=== PATIENT | male | born 1985 | race Caucasian/White ===

== ENCOUNTER 2017-06-25 14:56 | Emergency (ER) | payer OTHER ==
[2017-06-25] MEDS ORDERED: BUTALB/ACETAMINOPHEN/CAFFEINE 1 TAB EACH PO ONE (15:51)
--- NOTE | 2017-06-25 15:52 | ER Document Report ---
ED Medical Screen (RME) - General Chief Complaint: Headache Stated Complaint: HEADACHE Time Seen by Provider: 06/25/17 15:51 Notes: Patient has severe frontal headache behind his eyes. He states it was so bad this morning he can hardly get out of bed. He states it is been this way for approximately 3 days. He states he does not have a history of headaches. No trauma or fevers. No cough cold or congestion. He also states he has been feeling short of breath. He also states he has had some nosebleeds on and off for the last 3 days. TRAVEL OUTSIDE OF THE [place] IN LAST 30 DAYS: No - Related Data Allergies/Adverse Reactions: No Known Allergies Allergy (Unverified 06/25/17 15:03) Home Medications: Current Home Medications No Home Medications 06/25/17 [History] Past Medical History - Social History Chew tobacco use (# tins/day): No Frequency of alcohol use: None Drug Abuse: None - Past Medical History Cardiac Medical History: Reports: Hx Hypertension Renal/ Medical History: Denies: Hx Peritoneal Dialysis Psychiatric Medical History: Reports: Hx Anxiety Surgical Hx: Negative - Immunizations Hx Diphtheria, Pertussis, Tetanus Vaccination: Yes Physical Exam - Vital signs Vitals: Temp Pulse Resp BP Pulse Ox 99.1 F 80 18 126/73 H 96 06/25/17 15:02 06/25/17 15:02 06/25/17 15:02 06/25/17 15:02 06/25/17 15:02 Course - Vital Signs Vital signs: Temp Pulse Resp BP Pulse Ox 99.1 F 80 18 126/73 H 96 06/25/17 15:02 06/25/17 15:02 06/25/17 15:02 06/25/17 15:02 06/25/17 15:02
[2017-06-25 16:23] LABS: HEMATOCRIT 43.8 % (37.9-51.0); HEMOGLOBIN 15.3 g/dL (13.5-17.0); HGB HCT DIFFERENCE 2.1; MEAN CORPUSCULAR HEMOGLOBIN 29.9 pg (27.0-33.4); MEAN CORPUSCULAR HGB CONC 34.8 g/dL (32.0-36.0); MEAN CORPUSCULAR VOLUME 86 fl (80-97); RED CELL DISTRIBUTION WIDTH 13.2 % (11.5-14.0); WHITE BLOOD COUNT 5.1 10^3/uL (4.0-10.5)
--- NOTE | 2017-06-25 16:28 | RADIOLOGY REPORT (SQ) ---
EXAM DESCRIPTION: CT HEAD WITHOUT COMPLETED DATE/TIME: 06/25/2017 4:18 pm REASON FOR STUDY: penn COMPARISON: April 2015 TECHNIQUE: Axial images acquired through the brain without intravenous contrast. Images reviewed wi th bone, brain and subdural windows. Images stored on PACS. All CT scanners at this facility use dose modulation, iterative reconstruction, and/or weight based d osing when appropriate to reduce radiation dose to as low as reasonably achievable (ALARA). [facility]: Dose Right [facility]: CareDose [facility]: Dose Right [facility]: Teradose 4D [facility]: Smart [employer] RADIATION DOSE: Up-to-date CT equipment and radiation dose reduction techniques were employed. CTDIv ol: 64.6 mGy. DLP: 1163 mGy-cm. mGy. LIMITATIONS: None. FINDINGS: VENTRICLES: Normal size and contour. CEREBRUM: No masses. No hemorrhage. No midline shift. No evidence for acute infarction. Normal gra y/white matter differentiation. No areas of low density in the white matter. CEREBELLUM: No masses. No hemorrhage. No alteration of density. No evidence for acute infarction. EXTRAAXIAL SPACES: No fluid collections. No masses. ORBITS AND GLOBE: No intra- or extraconal masses. Normal contour of globe without masses. CALVARIUM: No fracture. PARANASAL SINUSES: No fluid or mucosal thickening. SOFT TISSUES: No mass or hematoma. OTHER: No other significant finding. IMPRESSION: NORMAL BRAIN CT WITHOUT CONTRAST. EVIDENCE OF ACUTE STROKE: NO. COMMENT: Quality ID # 436: Final reports with documentation of one or more dose reduction techniques (e.g., Automated exposure control, adjustment of the mA and/or kV according to patient size, use of iterative reconstruction technique) TECHNICAL DOCUMENTATION: JOB ID: [id number] [employer]- All Rights Reserved
[2017-06-25 16:43] LABS: ALANINE AMINOTRANSFERASE 65 U/L (21-72); ALBUMIN 4.7 g/dL (3.5-5.0); ALKALINE PHOSPHATASE 61 U/L (38-126); ANION GAP 12 (5-19); ASPARTATE AMINO TRANSFERASE 37 U/L (17-59); BILIRUBIN,DIRECT 0.3 mg/dL (0.0-0.4); BILIRUBIN,TOTAL 0.6 mg/dL (0.2-1.3); BLOOD UREA NITROGEN 13 mg/dL (7-20); CALCIUM 9.3 mg/dL (8.4-10.2); CARBON DIOXIDE 30 mmol/L (22-30); CHLORIDE 100 mmol/L (98-107); CREATININE RESULT 1.01 mg/dL (0.52-1.25); GLUCOSE 70 mg/dL (75-110); POTASSIUM 4.4 mmol/L (3.6-5.0); TOTAL PROTEIN 7.5 g/dL (6.3-8.2)
--- NOTE | 2017-06-25 17:41 | ER Document Report ---
ED General - General Chief Complaint: Headache Stated Complaint: HEADACHE Time Seen by Provider: 06/25/17 15:51 Mode of Arrival: Ambulatory Information source: Patient TRAVEL OUTSIDE OF THE [place] IN LAST 30 DAYS: No - Related Data Allergies/Adverse Reactions: No Known Allergies Allergy (Unverified 06/25/17 15:03) Home Medications: Current Home Medications No Home Medications 06/25/17 [History] Past Medical History - Social History Smoking Status: Never Smoker Chew tobacco use (# tins/day): No Frequency of alcohol use: None Drug Abuse: None Family History: Reviewed & Not Pertinent Patient has suicidal ideation: No Patient has homicidal ideation: No - Past Medical History Cardiac Medical History: Reports: Hx Hypertension Renal/ Medical History: Denies: Hx Peritoneal Dialysis Psychiatric Medical History: Reports: Hx Anxiety Surgical Hx: Negative - Immunizations Hx Diphtheria, Pertussis, Tetanus Vaccination: Yes Physical Exam - Vital signs Vitals: Temp Pulse Resp BP Pulse Ox 99.1 F 80 18 126/73 H 96 06/25/17 15:02 06/25/17 15:02 06/25/17 15:02 06/25/17 15:02 06/25/17 15:02 Course - Vital Signs Vital signs: Temp Pulse Resp BP Pulse Ox 99.1 F 80 18 126/73 H 96 06/25/17 15:02 06/25/17 15:02 06/25/17 15:02 06/25/17 15:02 06/25/17 15:02 - Laboratory Result Diagrams: 06/25/17 16:11 06/25/17 16:11 Laboratory results interpreted by me: 06/25/17 06/25/17 16:11 16:11 Plt Count 149 L Glucose 70 L
[2017-06-25] MEDS ORDERED: NORMAL SALINE 1000 ML 1,000 ML IV ONE (17:52)
[2017-06-25] MEDS ORDERED: DIPHENHYDRAMINE HCL 50 MG/ML VIAL IV ONE ×2 (17:52→18:29)
[2017-06-25] MEDS ORDERED: KETOROLAC TROMETHAMINE INJ/PF 30 MG/1 ML SDV IV ONE (17:52)
[2017-06-25] MEDS ORDERED: PROCHLORPERAZINE EDISYLATE INJ 10 MG/2 ML VIAL IV ONE (17:52)
--- NOTE | 2017-06-25 17:52 | ER Document Report ---
ED Headache - General Chief Complaint: Headache Stated Complaint: HEADACHE Time Seen by Provider: 06/25/17 15:51 Mode of Arrival: Ambulatory Information source: Patient Notes: 31 yo smoker, rare etoh, rare marijuana normally healthy male with sudden onset of shakes, not being able to stay warm, myalgia, arthralgia, sharp frontal CALERO betwwen eyes and top or head, headache 4/5, had to lay down, couldn't help in the kitchen saturday night. Nightmares, no sleep, felt feverish, chills and sweats. Saturday and Saturday with head pressure, nausea, sensitivity to light, nosebleed on saturday, diarrhea on saturday, no vomiting. Worse bending forward, the fioricet from [facility] helped some. No hx. migraines. Dx Seizure activity in 2007 - [facility]. no sore throat, no cough, tight chest pain while in the ER lasted a few seconds., has SOB with extertion this , no abd pain, pain in base of neck "aggrevated since saturday". TRAVEL OUTSIDE OF THE [place] IN LAST 30 DAYS: No - Related Data Allergies/Adverse Reactions: No Known Allergies Allergy (Unverified 06/25/17 15:03) Home Medications: Current Home Medications No Home Medications 06/25/17 [History] Past Medical History - General Information source: Patient - Social History Smoking Status: Current Every Day Smoker Chew tobacco use (# tins/day): No Frequency of alcohol use: None Drug Abuse: None Lives with: Spouse/Significant other Family History: Reviewed & Not Pertinent Patient has suicidal ideation: No Patient has homicidal ideation: No - Past Medical History Cardiac Medical History: Reports: Hx Hypertension Renal/ Medical History: Denies: Hx Peritoneal Dialysis Psychiatric Medical History: Reports: Hx Anxiety Surgical Hx: Negative - Immunizations Hx Diphtheria, Pertussis, Tetanus Vaccination: Yes Review of Systems - Review of Systems Constitutional: See HPI EENT: No symptoms reported Cardiovascular: No symptoms reported Respiratory: No symptoms reported Gastrointestinal: No symptoms reported Genitourinary: No symptoms reported Male Genitourinary: No symptoms reported Musculoskeletal: No symptoms reported Skin: No symptoms reported Hematologic/Lymphatic: No symptoms reported Neurological/Psychological: See HPI Physical Exam - Vital signs Vitals: Temp Pulse Resp BP Pulse Ox 99.1 F 80 18 126/73 H 96 06/25/17 15:02 06/25/17 15:02 06/25/17 15:02 06/25/17 15:02 06/25/17 15:02 Interpretation: Normal - General General appearance: Appears well, Alert In distress: None - HEENT Head: Normocephalic, Atraumatic Eyes: Normal Conjunctiva: Normal Extraocular movements intact: Yes Pupils: PERRL Mucous membranes: Normal Pharynx: Erythema Neck: Supple. No: Lymphadenopathy, Meningismus - Respiratory Respiratory status: No respiratory distress Chest status: Nontender Breath sounds: Normal Chest palpation: Normal - Cardiovascular Rhythm: Regular Heart sounds: Normal auscultation Murmur: No - Abdominal Inspection: Normal Distension: No distension Bowel sounds: Normal Tenderness: Nontender Organomegaly: No organomegaly - Back Back: Normal, Nontender. No: CVA tenderness - Extremities General upper extremity: Normal inspection, Nontender, Normal color, Normal ROM , Normal temperature General lower extremity: Normal inspection, Nontender, Normal color, Normal ROM , Normal temperature, Normal weight bearing. No: Jonathan's sign - Neurological Neuro grossly intact: Yes Cognition: Normal Orientation: AAOx4 Laureen Coma Scale Eye Opening: Spontaneous Laureen Coma Scale Verbal: Oriented [place] Coma Scale Motor: Obeys Commands [place] Coma Scale Total: 15 Speech: Normal Motor strength normal: LUE, RUE, LLE, RLE Sensory: Normal - Psychological Associated symptoms: Normal affect, Normal mood - Skin Skin Temperature: Warm Skin Moisture: Dry Skin Color: Normal Skin irregularity: negative: Rash Course - Re-evaluation Re-evalutation: 06/25/17 17:[address] scan are negative. 06/25/17 18:30 Patient's headache is 2/5 but he feels jerky which is most likely from the Compazine and I will give him another 25 mg of Benadryl. 06/25/17 18:46 Patient is asleep the second by of fluid is hanging and I expect him to be discharged with headache and viral syndrome diagnosis. And follow-up with a neurologist. 06/25/17 18:55 Headache is 1/5 he feels like he can go home he drank something and ate some crackers. - Vital Signs Vital signs: Temp Pulse Resp BP Pulse Ox 98.2 F 65 18 112/56 L 96 06/25/17 18:46 06/25/17 18:46 06/25/17 18:46 06/25/17 18:46 06/25/17 18:46 - Laboratory Result Diagrams: 06/25/17 16:11 06/25/17 16:11 Laboratory results interpreted by me: 06/25/17 06/25/17 16:11 16:11 Plt Count 149 L Glucose 70 L Discharge - Discharge Clinical Impression: Viral syndrome Headache Qualifiers: Headache type: unspecified Headache chronicity pattern: acute headache Intractability: not intractable Qualified Code(s): R51 - Headache Condition: Good Disposition: HOME, SELF-CARE Instructions: Intravenous Compazine for Headaches ([facility]), Use of Diphenhydramine , Headache ([facility]), Toradol Injection ([facility]), Viral Syndrome ([facility]) Additional Instructions: see the neurologist for headaches to er if worse Please complete the patient satisfaction survey if you get one, and return it.. If you do not receive a survey, then you can go to the [facility] website, [email or web address] and place your comments about your very good care. Thank you very much. It was a pleasure being your medical provider today. Forms: Return to Work Referrals: IDANIA GASTON MD [ACTIVE STAFF] - Follow up as needed
[2017-06-25 19:32] VITALS: BP 120/61
== END 2017-06-25 19:32 | disposition home or self-care (01) ==
LOC: ER 14:56
DX: R51 Headache (principal); B34.9 Viral infection, unspecified; M79.1 Myalgia; M25.50 Pain in unspecified joint; F17.200 Nicotine dependence, unspecified, uncomplicated; I10 Essential (primary) hypertension
CPT/HCPCS: 99284; 96361; 96374; 96375; 36415; 85027; 80053; 70450; J3490; J1200; J1885; J0780; J7030

== ENCOUNTER 2018-09-08 09:38 | Emergency (ER) | payer OTHER ==
[2018-09-08] MEDS ORDERED: MORPHINE SULFATE 10 MG/ML INJ IM ONE (10:05)
[2018-09-08] MEDS ORDERED: DIPHENHYDRAMINE HCL 50 MG/ML VIAL IM ONE (10:05)
[2018-09-08] MEDS ORDERED: ONDANSETRON HCL INJ/PF 4 MG/2 ML SDV IM ONE (10:08)
--- NOTE | 2018-09-08 10:08 | ER Document Report ---
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 He will was turning his head and stepping off and struck the right medial canthus aspect of his eye against the corner of a box. He is complaining of severe pain and unable to open his eye. He is keeping his eye closed tightly and it is waterin g. The eyelids were lifted up and he looks up and to the right to avoid contact with light, though there is some scleral conjunctival injection. The patient is so uncomfortable that an examination not really possible. He will be given some pain medication and moved to the main ED. TRAVEL OUTSIDE OF THE [place] IN LAST 30 DAYS: No - Related Data Allergies/Adverse Reactions: No Known Allergies Allergy (Verified 09/08/18 09:45) Past Medical History - Past Medical History Cardiac Medical History: Reports: Hx Hypertension Renal/ Medical History: Denies: Hx Peritoneal Dialysis Psychiatric Medical History: Reports: Hx Anxiety - Immunizations Hx Diphtheria, Pertussis, Tetanus Vaccination: Yes Physical Exam - Vital signs Vitals: Temp Pulse Resp BP Pulse Ox 98.3 F 75 20 126/87 H 95 09/08/18 09:43 09/08/18 09:43 09/08/18 09:43 09/08/18 09:43 09/08/18 09:43 Course - Vital Signs Vital signs: Temp Pulse Resp BP Pulse Ox 98.3 F 75 20 126/87 H 95 09/08/18 09:43 09/08/18 09:43 09/08/18 09:43 09/08/18 09:43 09/08/18 09:43
[2018-09-08] MEDS ORDERED: ONDANSETRON 4 MG TAB.RAPDIS PO ONE (10:10)
[2018-09-08] MEDS ORDERED: TETRACAINE HCL 0.5% OPH SOLN 4 ML ONE (11:34)
[2018-09-08] MEDS ORDERED: HYDROMORPHONE HCL INJ/PF 2 MG/ML AMPULE IV ONE ×2 (12:08→13:36)
--- NOTE | 2018-09-08 12:12 | ER Document Report ---
ED Eye Complaint - General Chief Complaint: Eye Injury Stated Complaint: EYE INJURY Time Seen by Provider: 09/08/18 10:01 Primary Care Provider: DAVION PRIETO MD [ACTIVE STAFF] - Follow up as needed [facility] [[facility]] - Follow up as needed TRAVEL OUTSIDE OF THE [place] IN LAST 30 DAYS: No - HPI Patient complains to provider of: Right eye injury Onset: Just prior to arrival Eye location: Right Injury: Yes Occurred at: Work Quality of pain: Achy, Pressure, Stabbing Severity: Severe Pain Level: 5 Notes: Patient is a 32-year-old male presenting to the emergency department complaining of injury to his right eye that occurred just prior to arrival, patient works at [employer], he was walking out of the cooler and impacted the corner of a cardboard box that his right medial canthus, since then he complains of pain at the back of his eye, which is severe in nature, inability to open the eye, and increased hearing, he denies pain or injury elsewhere - Related Data Allergies/Adverse Reactions: No Known Allergies Allergy (Verified 09/08/18 09:45) Past Medical History - General Information source: Patient - Social History Smoking Status: Current Every Day Smoker Chew tobacco use (# tins/day): No Frequency of alcohol use: None Drug Abuse: None Family History: Reviewed & Not Pertinent Patient has suicidal ideation: No Patient has homicidal ideation: No - Past Medical History Cardiac Medical History: Reports: Hx Hypertension Renal/ Medical History: Denies: Hx Peritoneal Dialysis Psychiatric Medical History: Reports: Hx Anxiety - Immunizations Hx Diphtheria, Pertussis, Tetanus Vaccination: Yes Review of Systems - Review of Systems Constitutional: No symptoms reported EENT: See HPI, Eye pain Cardiovascular: No symptoms reported Respiratory: No symptoms reported Gastrointestinal: No symptoms reported Genitourinary: No symptoms reported Male Genitourinary: No symptoms reported Musculoskeletal: No symptoms reported Skin: No symptoms reported Hematologic/Lymphatic: No symptoms reported Neurological/Psychological: No symptoms reported -: Yes All other systems reviewed and negative Physical Exam - Vital signs Vitals: Temp Pulse Resp BP Pulse Ox 98.3 F 75 20 126/87 H 95 09/08/18 09:43 09/08/18 09:43 09/08/18 09:43 09/08/18 09:43 09/08/18 09:43 - Notes Notes: - General General appearance: Appears well, Alert In distress: None - HEENT Head: Normocephalic, Atraumatic - Respiratory Respiratory status: No respiratory distress - Cardiovascular Rhythm: Regular - Abdominal Inspection: Normal - Back Back: Normal - Extremities General upper extremity: Normal inspection General lower extremity: Normal inspection - Neurological Neuro grossly intact: Yes Orientation: AAOx4 Laureen Coma Scale Eye Opening: Spontaneous Laureen Coma Scale Verbal: Oriented [place] Coma Scale Motor: Obeys Commands [place] Coma Scale Total: 15 - Psychological Associated symptoms: Normal affect, Normal mood - Skin Skin Temperature: Warm Skin Moisture: Dry Skin Color: Normal - HEENT Conjunctiva: Injected, Other - Increased tearing from right eye Cornea: Corneal abrasion, Flourescein stain uptake Extraocular movements intact: Yes Eyelashes: Normal Pupils: PERRL Course - Re-evaluation Re-evalutation: 09/08/18 18:45 Imaging findings unremarkable, no evidence of globe rupture or hematoma, physical exam findings with floor seen consistent with large corneal abrasion, patient provided with prescriptions for pain control and ophthalmic antibiotics, advised to follow-up with manager specialty or return if symptoms worsen, patient acknowledges understanding and agreement with this plan - Vital Signs Vital signs: Temp Pulse Resp BP Pulse Ox 99.0 F 52 L 16 118/68 98 09/08/18 13:53 09/08/18 13:53 09/08/18 13:53 09/08/18 13:53 09/08/18 13:53 - Diagnostic Test Radiology reviewed: Image reviewed, Reports reviewed Procedures - Eye Procedure Right Time completed: 12:00 Alcaine Drops Administered: Yes Fluorescein applied: Right Eyes picture: 1 - Fluorescein stain uptake Discharge - Discharge Clinical Impression: Corneal abrasion Condition: Stable Disposition: HOME, SELF-CARE Instructions: Corneal Abrasion ([facility]) Additional Instructions: Follow up with your primary care provider and an manager specialty in 2-3 days. Return to the ER immediately if symptoms worsen or any additional concerns. Prescriptions: Ofloxacin [Ocuflox] 2 drop OP 5XD #1 bottle Oxycodone HCl/Acetaminophen [Percocet 5-325 mg Tablet] 1 - 2 tab PO ASDIR PRN #14 tablet PRN Reason: Forms: Return to Work Referrals: [facility] [Primary Care [facility]] - Follow up as needed DAVION PRIETO MD [ACTIVE STAFF] - Follow up as needed
--- NOTE | 2018-09-08 13:02 | RADIOLOGY REPORT (SQ) ---
EXAM DESCRIPTION: CT ORBIT/SELLA WITHOUT COMPLETED DATE/TIME: 09/08/2018 12:49 pm REASON FOR STUDY: right eye injury COMPARISON: None. TECHNIQUE: Noncontrasted images through the orbits windowed for bone and soft tissue. Additional co guzman and sagittal reconstructed images reviewed. All images stored on PACS. All CT scanners at this facility use dose modulation, iterative reconstruction, and/or weight based d osing when appropriate to reduce radiation dose to as low as reasonably achievable (ALARA). [facility]: Dose Right [facility]: CareDose [facility]: Dose Right [facility]: Teradose 4D [facility]: [employer] RADIATION DOSE: CT Rad equipment meets quality standard of care and radiation dose reduction techniq ues were employed. CTDIvol: 30.4 mGy. DLP: 391 mGy-cm. mGy. LIMITATIONS: None. FINDINGS: FACIAL BONES: No fracture or bone lesion. ORBITS: Intact. No fracture. Symmetric intact globes and retroorbital soft tissues. PARANASAL SINUSES: Clear. No significant mucosal thickening, mass or fluid. No nasal polyps. Maxilla ry sinus outlets are patent. SOFT TISSUES: There is mild soft tissue swelling of the right eyelid apparently. INFERIOR BRAIN: Limited view. No acute findings. OTHER: No other significant finding. IMPRESSION: There is mild soft tissue swelling. The optic globes are symmetric and intact. No orbi lorenzo fractures seen. TECHNICAL DOCUMENTATION: JOB ID: [id number] Quality ID # [id number]: Final reports with documentation of one or more dose reduction techniques (e.g., Au tomated exposure control, adjustment of the mA and/or kV according to patient size, use of iterative reconstruction technique) 2010 [employer]- All Rights Reserved Reading location - IP/workstation name: [email or web address]
[2018-09-08 13:54] VITALS: BP 118/68
== END 2018-09-08 13:54 | disposition home or self-care (01) ==
LOC: ER 09:38
DX: S05.01XA Injury of conjunctiva and corneal abrasion without foreign body, right eye, initial encounter (principal); W22.8XXA Striking against or struck by other objects, initial encounter; Y92.511 Restaurant or cafe as the place of occurrence of the external cause; Y99.0 Civilian activity done for income or pay; F17.200 Nicotine dependence, unspecified, uncomplicated; I10 Essential (primary) hypertension
CPT/HCPCS: 96376; 99283; 96372; 96374; 70480; S0119; J2270; J1170; J3490

== ENCOUNTER 2019-08-06 11:31 | Emergency (ER) | payer OTHER ==
[2019-08-06 11:43] VITALS: BP 123/80
[2019-08-06] MEDS ORDERED: NORMAL SALINE 1000 ML 1,000 ML IV ONE (13:03)
[2019-08-06] MEDS ORDERED: DIPHENHYDRAMINE HCL 50 MG/ML VIAL IV ONE (13:03)
[2019-08-06] MEDS ORDERED: METOCLOPRAMIDE HCL INJ/PF 10 MG/2 ML SDV IV ONE (13:03)
--- NOTE | 2019-08-06 13:07 | ER Document Report ---
ED Medical Screen (RME) - General Chief Complaint: Headache Stated Complaint: HEADACHE Time Seen by Provider: 08/06/19 13:01 Primary Care Provider: GIANLUCA ENCARNACION [Primary Care Provider] - Follow up as needed Notes: Patient is a 33-year-old male who presents emergency department with a chief complaint of headache. Patient reports he does have a history of headaches but that this is the worst when he is ever had in his whole 33 years of life. Patient reports that he feels like the pain starts in the back of the neck and radiates up towards the top of his head. Patient reports this feels like a sharp stabbing knife at the top of his head. Patient reports light sensitivity as well as nausea without vomiting. Patient reports he has taken multiple [id number] medications over the past 4 days without help. Patient reports that 2 weeks ago he thought that he may have had a sinus infection. Patient reports he is been staying at home and taking care of his sick kids and has not seen a doctor. Patient reports he did have a temperature of 100.1 but has been fever free for 24 hours. Patient reports nasal drainage. Patient denies sore throat or cough. TRAVEL OUTSIDE OF THE [place] IN LAST 30 DAYS: No - Related Data Allergies/Adverse Reactions: No Known Allergies Allergy (Verified 09/08/18 09:45) Home Medications: otc tylenlon Past Medical History - Social History Chew tobacco use (# tins/day): No Frequency of alcohol use: quit 3months ago Drug Abuse: None - Past Medical History Cardiac Medical History: Reports: Hx Hypertension Renal/ Medical History: Denies: Hx Peritoneal Dialysis Psychiatric Medical History: Reports: Hx Anxiety - Immunizations Hx Diphtheria, Pertussis, Tetanus Vaccination: Yes Physical Exam - Vital signs Vitals: Temp Pulse Resp BP Pulse Ox 98.4 F 72 18 123/80 99 08/06/19 11:39 08/06/19 11:39 08/06/19 11:39 08/06/19 11:39 08/06/19 11:39 - Respiratory Respiratory status: No respiratory distress Chest status: Nontender Breath sounds: Normal Chest palpation: Normal Course - Re-evaluation Re-evalutation: 08/06/19 13:07 CT of the head was ordered due to the patient's complaint of the worst headache of his life. Will order basic labs, influenza testing as he has had sick contacts at home including his children and a low-grade fever. I have greeted and performed a rapid initial assessment of this patient. A comprehensive ED assessment and evaluation of the patient, analysis of test results and completion of the medical decision making process will be conducted by additional ED providers. - Vital Signs Vital signs: Temp Pulse Resp BP Pulse Ox 98.4 F 72 18 123/80 99 08/06/19 11:39 08/06/19 11:39 08/06/19 11:39 08/06/19 11:39 08/06/19 11:39 Doctor's Discharge - Discharge Referrals: [facility] [Primary [facility]] - Follow up as needed
[2019-08-06 13:18] LABS: ABSOLUTE EOSINOPHILS # (AUTO) 0.1 10^3/uL (0.0-0.6); ABSOLUTE MONOCYTES (AUTO) 0.8 10^3/uL (0.1-1.4); ABSOLUTE NEUT (AUTO) 7.5 10^3/uL (1.7-8.2); BASOPHILS % (AUTO) 0.4 % (0-2); EOSINOPHILS % (AUTO) 0.9 % (0-6); HEMOGLOBIN 15.6 g/dL (13.5-17.0); LYMPHOCYTES % (AUTO) 19.2 % (13-45); MEAN CORPUSCULAR HEMOGLOBIN 30.4 pg (27.0-33.4); MEAN CORPUSCULAR HGB CONC 34.7 g/dL (32.0-36.0); MEAN CORPUSCULAR VOLUME 88 fl (80-97); MONOCYTES % (AUTO) 7.8 % (3-13); PLATELET COUNT 233 10^3/uL (150-450); RED BLOOD COUNT 5.14 10^6/uL (4.35-5.55); SEGMENTED NEUTROPHILS % (AUTO) 71.7 % (42-78); TOTAL CELLS COUNTED % (AUTO) 100 %; WHITE BLOOD COUNT 10.4 10^3/uL (4.0-10.5)
--- NOTE | 2019-08-06 13:32 | RADIOLOGY REPORT (SQ) ---
EXAM DESCRIPTION: CT HEAD WITHOUT COMPLETED DATE/TIME: 08/06/2019 1:17 pm REASON FOR STUDY: worst headache COMPARISON: 06/25/2017 TECHNIQUE: Axial images acquired through the brain without intravenous contrast. Images reviewed wi th bone, brain and subdural windows. Additional sagittal and coronal reconstructions were generated. Images stored on PACS. All CT scanners at this facility use dose modulation, iterative reconstruction, and/or weight based d osing when appropriate to reduce radiation dose to as low as reasonably achievable (ALARA). [facility]: Dose Right [facility]: CareDose [facility]: Dose Right [facility]: Teradose 4D [facility]: [email or web address] RADIATION DOSE: CT Rad equipment meets quality standard of care and radiation dose reduction techniq ues were employed. CTDIvol: 53.2 mGy. DLP: 1070 mGy-cm. mGy. LIMITATIONS: None. FINDINGS: VENTRICLES: Normal size and contour. CEREBRUM: No masses. No hemorrhage. No midline shift. No evidence for acute infarction. Normal gra y/white matter differentiation. No areas of low density in the white matter. CEREBELLUM: No masses. No hemorrhage. No alteration of density. No evidence for acute infarction. EXTRAAXIAL SPACES: No fluid collections. No masses. ORBITS AND GLOBE: No intra- or extraconal masses. Normal contour of globe without masses. CALVARIUM: No fracture. PARANASAL SINUSES: Mucosal thickening and fluid within the ethmoid air cells and sphenoid sinuses. R emaining sinuses and mastoid air cells are well aerated. SOFT TISSUES: No mass or hematoma. OTHER: No other significant finding. IMPRESSION: Mucosal thickening and fluid within the ethmoid air cells and sphenoid sinuses compatibl e with acute sinus disease. No other evidence of acute intracranial process. EVIDENCE OF ACUTE STROKE: NO. COMMENT: Quality ID # [id number]: Final reports with documentation of one or more dose reduction techniques (e.g., Automated exposure control, adjustment of the mA and/or kV according to patient size, use of iterative reconstruction technique) TECHNICAL DOCUMENTATION: JOB ID: [id number] [employer]- All Rights Reserved Reading location - IP/workstation name: [email or web address]
[2019-08-06] MEDS ORDERED: KETOROLAC TROMETHAMINE INJ/PF 30 MG/1 ML SDV IV ONE (13:36)
[2019-08-06 13:51] LABS: ALBUMIN 4.2 g/dL (3.5-5.0); ALKALINE PHOSPHATASE 79 U/L (38-126); ANION GAP 8 (5-19); ASPARTATE AMINO TRANSFERASE 20 U/L (17-59); BILIRUBIN,DIRECT 0.1 mg/dL (0.0-0.4); BILIRUBIN,TOTAL 0.7 mg/dL (0.2-1.3); BLOOD UREA NITROGEN 9 mg/dL (7-20); CALCIUM 9.3 mg/dL (8.4-10.2); CARBON DIOXIDE 29 mmol/L (22-30); CHLORIDE 104 mmol/L (98-107); GLUCOSE 96 mg/dL (75-110); POTASSIUM 4.2 mmol/L (3.6-5.0); TOTAL PROTEIN 7.4 g/dL (6.3-8.2)
[2019-08-06] MEDS ORDERED: DEXTROSE 5%-LACTATED RINGERS 1,000 ML IV ONE (16:11)
[2019-08-06] MEDS ORDERED: AMPICILLIN SOD/SULBACTAM 3 GM VIAL IV ONE (16:12)
--- NOTE | 2019-08-06 17:17 | ER Document Report ---
Entered by CHRISTY LOUIE SCRIBE 08/06/19 1952 Acting as scribe for:JAYESH HERNANDEZ MD ED Headache - General Chief Complaint: Headache Stated Complaint: HEADACHE Time Seen by Provider: 08/06/19 13:01 Primary Care Provider: GIANLUCA ENCARNACION [Primary Care Provider] - Follow up as needed Mode of Arrival: Ambulatory Information source: Patient Notes: This 33 year old male patient presents to the ED today with complaints of a headache for the past x4 days. Patient states that the pain begins at the back of his neck and radiates up to the top of his head. Patient states the pain feels like "a sharp stabbing knife at the top of his head". Patient notes that the pain is worsened when he coughs or tries to blow his nose. Patient states that he took OTC medications without relief. Patient notes that he had sinus pressure x2 weeks ago that would exacerbate his headache. Patient reports nasal drainage, light sensitivity, fever of 100.1 x2 days ago, and nausea, but denies vomiting. TRAVEL OUTSIDE OF THE [place] IN LAST 30 DAYS: No - Related Data Allergies/Adverse Reactions: No Known Allergies Allergy (Verified 09/08/18 09:45) Home Medications: otc tylenlon Past Medical History - General Information source: Patient - Social History Smoking Status: Current Every Day Smoker Cigarette use (# per day): Yes - 1 ppd Chew tobacco use (# tins/day): No Smoking Education Provided: No Frequency of alcohol use: quit 3months ago Drug Abuse: None Lives with: Family Family History: Reviewed & Not Pertinent Patient has suicidal ideation: No Patient has homicidal ideation: No - Past Medical History Cardiac Medical History: Reports: Hx Hypertension Psychiatric Medical History: Reports: Hx Anxiety Past Surgical History: Reports: None - Immunizations Hx Diphtheria, Pertussis, Tetanus Vaccination: Yes Review of Systems - Review of Systems Constitutional: See HPI, Fever EENT: See HPI, Nose discharge, Sinus pressure, Other - Light sensitivity Cardiovascular: No symptoms reported Respiratory: See HPI, Cough Gastrointestinal: See HPI, Nausea. denies: Vomiting Genitourinary: No symptoms reported Male Genitourinary: No symptoms reported Musculoskeletal: See HPI, Neck pain Skin: No symptoms reported Hematologic/Lymphatic: No symptoms reported Neurological/Psychological: See HPI, Headaches -: Yes All other systems reviewed and negative Physical Exam - Vital signs Vitals: Temp Pulse Resp BP Pulse Ox 98.4 F 72 18 123/80 99 08/06/19 11:39 08/06/19 11:39 08/06/19 11:39 08/06/19 11:39 08/06/19 11:39 - General General appearance: Alert - HEENT Head: Atraumatic, Tenderness - Scalp musculature tenderness with palpation Eyes: Normal Pupils: PERRL Sinus: Other - Pressure on inner canthi causes pain down in the sphenoid sinus Neck: Other - Posterior cervical musculature tenderness with palpation - Respiratory Respiratory status: No respiratory distress Chest status: Nontender Breath sounds: Normal Chest palpation: Normal - Cardiovascular Rhythm: Regular Heart sounds: Normal auscultation Murmur: No - Abdominal Inspection: Normal Distension: No distension Bowel sounds: Normal Tenderness: Nontender Organomegaly: No organomegaly - Back Back: Normal, Nontender - Extremities General upper extremity: Normal inspection General lower extremity: Normal inspection - Neurological Neuro grossly intact: Yes - Psychological Associated symptoms: Normal affect, Normal mood - Skin Skin Temperature: Warm Skin Moisture: Dry Skin Color: Normal Course - Re-evaluation Re-evalutation: 08/06/19 17:25 The patient was sound asleep at this time. I woke him up and he states his headache is gone and he is feeling much better. - Vital Signs Vital signs: Temp Pulse Resp BP Pulse Ox 98.4 F 72 18 123/80 99 08/06/19 11:39 08/06/19 11:39 08/06/19 11:39 08/06/19 11:39 08/06/19 11:39 - Laboratory Result Diagrams: 08/06/19 13:05 08/06/19 13:05 Discharge - Discharge Clinical Impression: Acute ethmoidal sinusitis, unspecified Qualifiers: Recurrence: not specified as recurrent Qualified Code(s): J01.20 - Acute ethmoidal sinusitis, unspecified Acute sphenoidal sinusitis Qualifiers: Recurrence: not specified as recurrent Qualified Code(s): J01.30 - Acute sphenoidal sinusitis, unspecified Condition: Stable Disposition: HOME, SELF-CARE Additional Instructions: Sinusitis You have sinusitis, an infection of the sinus cavities of the face. The sinuses are air-filled chambers which open into the inside of the nose. Bacteria and pus fill a sinus, causing pain, drainage, and fever. Sinusitis is treated with antibiotics. Often, expectorants (to thin the sinus mucous) or decongestants (to reduce swelling) are prescribed as well. Healing requires seven to 10 days. Avoid chemical fumes, pollens, dusts, and smoke (especially cigarette smoke). Keep the air humidified in your bedroom and work area and take plenty of liquids by mouth. This condition can be serious if the infection spreads. If your symptoms worsen, or if you develop severe headache, high fever, stiff neck, or a rash, you must call the doctor or return for re-evaluation. Take the medications as prescribed. Take ibuprofen 600 mg every 8 hours for the next few days. Drink plenty of fluids and stay well-hydrated. Try to reduce smoking as much as possible. Take Robitussin expectorant to help loosen the mucus in your sinuses. Follow-up with your primary care provider in the next few days if not improving. RETURN TO THE EMERGENCY ROOM IF ANY NEW OR WORSENING SYMPTOMS. Prescriptions: Amox Tr/Potassium Clavulanate [Augmentin 875-125 mg Tablet] 1 tab PO BID #20 tablet Hydrocodone/Acetaminophen [Ponderosa 5-325 mg Tablet] 1 tab PO Q4 PRN #15 tablet PRN Reason: [facility]errals: [facility]] - Follow up as needed Scribe Attestation: 08/06/19 17:25 I personally performed the services described in the documentation, reviewed and edited the documentation which was dictated to the scribe in my presence, and it accurately records my words and actions. I personally performed the services described in the documentation, reviewed and edited the documentation which was dictated to the scribe in my presence, and it accurately records my words and actions.
== END 2019-08-06 18:02 | disposition home or self-care (01) ==
LOC: ER 11:31
DX: J01.30 Acute sphenoidal sinusitis, unspecified (principal); J01.20 Acute ethmoidal sinusitis, unspecified; R51 Headache; R50.9 Fever, unspecified; F17.210 Nicotine dependence, cigarettes, uncomplicated
CPT/HCPCS: 99284; 96361; 96375; 96365; 36415; 85025; 80053; 70450; J1200; J0295; J1885; J2765; J7121; J7030

== ENCOUNTER 2020-01-23 13:17 | Emergency (ER) | payer OTHER ==
[2020-01-23 13:47] LABS: ABSOLUTE BASOPHILS # (AUTO) 0.1 10^3/uL (0.0-0.2); ABSOLUTE LYMPHOCYTES (AUTO) 1.2 10^3/uL (0.5-4.7); ABSOLUTE MONOCYTES (AUTO) 0.5 10^3/uL (0.1-1.4); ABSOLUTE NEUT (AUTO) 7.9 10^3/uL (1.7-8.2); BASOPHILS % (AUTO) 0.6 % (0-2); EOSINOPHILS % (AUTO) 0.2 % (0-6); HEMATOCRIT 46.6 % (37.9-51.0); HEMOGLOBIN 16.5 g/dL (13.5-17.0); LYMPHOCYTES % (AUTO) 12.1 % (13-45); MEAN CORPUSCULAR HGB CONC 35.4 g/dL (32.0-36.0); MEAN CORPUSCULAR VOLUME 88 fl (80-97); MONOCYTES % (AUTO) 4.8 % (3-13); PLATELET COUNT 179 10^3/uL (150-450); RED BLOOD COUNT 5.33 10^6/uL (4.35-5.55); RED CELL DISTRIBUTION WIDTH 13.7 % (11.5-14.0); SEGMENTED NEUTROPHILS % (AUTO) 82.3 % (42-78); TOTAL CELLS COUNTED % (AUTO) 100 %; WHITE BLOOD COUNT 9.6 10^3/uL (4.0-10.5)
--- NOTE | 2020-01-23 13:58 | ER Document Report ---
ED General - General Chief Complaint: Suicidal Ideation Stated Complaint: SUICIDAL IDEATION Time Seen by Provider: 01/23/20 13:21 Primary Care Provider: SHASHANK,GIANLUCA [Primary Care Provider] - Follow up as needed Notes: HPI: Patient is a 34-year-old male who presents today with EMS secondary to 's concern about suicidal actions and thoughts. Patient supposedly wrapped a short around his neck in an attempt to strangle himself. Patient had denied this to EMS but is adamant. Patient states a history of depression as a child. He denies any other medications or medical history. He denies any auditory visual hallucinations. Patient does not answer when asked about suicidal intents. There was also a concern that the patient threatened to drink bleach but EMS stated that the states that he did not ingest this. Patient denies ingesting it himself. He denies any bodily or physical pain. ROS: See HPI All other review of systems reviewed and otherwise negative Reviewed vital signs and nursing note as charted by RN. PHYSICAL EXAM: CONSTITUTIONAL: Alert and oriented and responds appropriately to questions. Patient has a flat affect HEAD: Normocephalic; atraumatic EYES: PERRL; Conjunctivae clear, no nystagmus; sclerae non-icteric ENT: Normal nose; no rhinorrhea; moist mucous membranes; pharynx without lesions noted NECK: Supple without meningismus; non-tender; no cervical lymphadenopathy, no masses CARD: Regular rate and rhythm; no murmurs; symmetric distal pulses RESP: Normal chest excursion without splinting or tachypnea; breath sounds clear and equal bilaterally; no wheezes, no rhonchi, no rales ABD/GI: Normal bowel sounds; non-distended; soft, non-tender BACK: The back appears normal and is non-tender to palpation EXT: Normal ROM in all joints; non-tender to palpation; no edema SKIN: No acute lesions noted NEURO: CN 2-12 intact; 5/5 bilateral upper and lower extremity strength with sensation intact to light touch PSYCH: Patient has a flat affect TRAVEL OUTSIDE OF THE [place] IN LAST 30 DAYS: No - Related Data Allergies/Adverse Reactions: No Known Allergies Allergy (Verified 09/08/18 09:45) Past Medical History - Social History Smoking Status: Unknown if Ever Smoked Family History: Reviewed & Not Pertinent - Past Medical History Cardiac Medical History: Reports: Hx Hypertension Renal/ Medical History: Denies: Hx Peritoneal Dialysis Psychiatric Medical History: Reports: Hx Anxiety - Immunizations Hx Diphtheria, Pertussis, Tetanus Vaccination: Yes Physical Exam - Vital signs Vitals: Temp 98.7 F 01/23/20 13:17 Course - Re-evaluation Re-evalutation: 01/23/20 14:01 Given the above history and physical examination, we will obtain basic labs, psychiatric laboratory profile labs, and consult behavioral health. Patient has no crepitus, swelling, or erythema to the neck. Full range of motion without pain. No focal neurological deficits. 01/23/20 14:08 EKG shows a heart of 94, normal sinus rhythm, normal axis, no ST elevation or depression 01/23/20 14:46 Labs as recorded. Patient is unhappy that he needs to stay at this time. I do not believe it is safe to discharge the patient home at this time given the history from EMS and the . Psychiatry is in agreement. - Vital Signs Vital signs: Temp Pulse Resp BP Pulse Ox 98.7 F 88 18 154/85 H 01/23/20 13:21 01/23/20 13:21 01/23/20 13:21 01/23/20 13:21 - Laboratory Result Diagrams: 01/23/20 13:32 01/23/20 13:32 Laboratory results interpreted by me: 01/23/20 01/23/20 13:32 13:32 Lymph % (Auto) 12.1 L Seg Neutrophils % 82.3 H Glucose 111 H Total Protein 8.7 H Albumin 5.1 H Salicylates < 1.0 L Acetaminophen < 10 L Discharge - Discharge Clinical Impression: Suicidal behavior Qualifiers: Attempted self-injury: with attempted self-injury Qualified Code(s): T14.91XA - Suicide attempt, initial encounter Condition: Fair Disposition: PSYCH HOSP/UNIT [facility]: [facility] [[facility] - Follow up as needed
[2020-01-23 14:06] LABS: ACETAMINOPHEN < 10 ug/mL (10-30); ALBUMIN 5.1 g/dL (3.5-5.0); ALCOHOL < 10 mg/dL (NONE DETECTED); ALKALINE PHOSPHATASE 83 U/L (38-126); ANION GAP 9 (5-19); ASPARTATE AMINO TRANSFERASE 25 U/L (17-59); BILIRUBIN,TOTAL 0.8 mg/dL (0.2-1.3); BLOOD UREA NITROGEN 15 mg/dL (7-20); CALCIUM 9.5 mg/dL (8.4-10.2); CARBON DIOXIDE 27 mmol/L (22-30); CHLORIDE 103 mmol/L (98-107); GLUCOSE 111 mg/dL (75-110); POTASSIUM 3.9 mmol/L (3.6-5.0); SALICYLATE < 1.0 mg/dL (2.0-20.0); TOTAL PROTEIN 8.7 g/dL (6.3-8.2)
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
[2020-01-23 15:03] LABS: APPEARANCE,URINE CLEAR; BILIRUBIN,URINE NEGATIVE (NEGATIVE); COLOR,URINE YELLOW; GLUCOSE, URINE NEGATIVE (NEGATIVE); KETONES,URINE TRACE mg/dL (NEGATIVE); LEUKOCYTE ESTERASE,URINE NEGATIVE (NEGATIVE); NITRITE,URINE NEGATIVE (NEGATIVE); PROTEIN,URINE NEGATIVE (NEGATIVE); URINE SPECIFIC GRAVITY 1.006; UROBILINOGEN,URINE NEGATIVE mg/dL (<2.0)
[2020-01-23 15:21] LABS: URINE BARBITURATES SCREEN NEGATIVE; URINE BENZODIAZEPINES SCREEN NEGATIVE; URINE METHADONE SCREEN NEGATIVE; URINE PHENCYCLIDINE SCREEN NEGATIVE
[2020-01-23 15:32] LABS: URINE AMPHETAMINES SCREEN UNCONFIRMED POSITIVE; URINE COCAINE SCREEN NEGATIVE; URINE MARIJUANA (THC) SCREEN UNCONFIRMED POSITIVE
[2020-01-23] MEDS: DIVALPROEX SODIUM 250 MG TAB.SR.24H PO SCH (18:48)
[2020-01-23] MEDS: OLANZAPINE 5 MG TAB.RAPDIS PO SCH (18:49)
--- NOTE | 2020-01-23 21:55 | EKG REPORT ---
SEVERITY:- NORMAL ECG - SINUS RHYTHM : Confirmed by: Bette Stallings MD 23-Jan-2020 21:54:52
[2020-01-23] MEDS: BENZTROPINE MESYLATE 1 MG TABLET PO SCH (23:08)
[2020-01-24] MEDS: DIVALPROEX SODIUM 250 MG TAB.SR.24H PO SCH ×2 (10:55→18:46)
[2020-01-24] MEDS: OLANZAPINE 5 MG TAB.RAPDIS PO SCH ×2 (10:55→18:46)
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
--- NOTE | 2020-01-24 19:51 | ER Document Report ---
Doctor's Note Notes: 01/24/20 19:50 Patient has been in no distress throughout the shift. Per the psychiatric team patient has been accepted at another facility pending a negative COVID test which was done and is negative.
[2020-01-24] MEDS: BENZTROPINE MESYLATE 1 MG TABLET PO SCH (22:06)
[2020-01-25] MEDS: DIVALPROEX SODIUM 250 MG TAB.SR.24H PO SCH (10:18)
[2020-01-25] MEDS: OLANZAPINE 5 MG TAB.RAPDIS PO SCH (10:18)
[2020-01-25 11:52] VITALS: BP 123/84
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
== END 2020-01-25 12:58 ==
LOC: ER 13:17
DX: T14.91XA Suicide attempt, initial encounter (principal); X83.8XXA Intentional self-harm by other specified means, initial encounter; F22 Delusional disorders; I10 Essential (primary) hypertension; Z63.0 Problems in relationship with spouse or partner; Z03.818 Encounter for observation for suspected exposure to other biological agents ruled out
CPT/HCPCS: 93005; 99285; 36415; 80307 ×4; 85025; 87635; 80053; 81001; 93010; J3490 ×6; C9803

== ENCOUNTER 2020-06-29 15:15 | Emergency (ER) | payer OTHER ==
[2020-06-29] MEDS ORDERED: IBUPROFEN 800 MG TABLET PO ONE (17:00)
--- NOTE | 2020-06-29 17:05 | ER Document Report ---
ED Hand/Wrist Injury - General Chief Complaint: Hand Injury Stated Complaint: RIGHT HAND PAIN, SWELLING Time Seen by Provider: 06/29/20 16:59 Primary Care Provider: GREER GILMAN JR, DO [ACTIVE PROVISIONAL STAFF] - Follow up as needed [facility] [Primary [facility]] - Follow up as needed Mode of Arrival: Ambulatory Information source: Patient Notes: 34-year-old male presented to ED for right hand pain. He states he punched a wall 2 days ago. He has not been to a provider or been taking any kind of pain medicine except for Tylenol yesterday. Is alert oriented respirations regular nonlabored speaking in full sentences. 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 Constitutional: Negative for fever. HENT: Negative for sore throat. Eyes: Negative for visual changes. Cardiovascular: Negative for chest pain. Respiratory: Negative for shortness of breath. Gastrointestinal: Negative for abdominal pain, vomiting or diarrhea. Genitourinary: Negative for dysuria. Musculoskeletal: Pain and swelling to right hand and wrist numbness and tingling to the hand pain level 4 and 5. Skin: Negative for rash. Neurological: Negative for headaches, weakness or numbness. 10 point ROS negative except as marked above and in HPI. VITAL SIGNS: Within normal limits. GENERAL: No acute distress, non-toxic appearance. HEAD: Normal with no signs of head trauma. EYES: PERRLA, EOMI, conjunctiva normal, no discharge. EARS: Hearing grossly intact. NOSE: Normal. THROAT: Oropharynx is normal. NECK: Normal range of motion, no tenderness, supple, no lymphadenopathy, No adenopathy, no JVD. CHEST: Clear breath sounds bilaterally. No wheezes, rales, or rhonchi. CARDIAC: Regular rate and rhythm. S1 and S2, without murmurs, gallops, or rubs. VASCULAR: No Edema. Peripheral pulses normal and equal in all extremities. ABDOMEN: Normal and soft with no tenderness, no masses or pulsatile masses. GASTROINTESTINAL: Bowel sounds normal GENITOURINARY: Normal, No tenderness LYMPATHTIC: No lymphadenopathy noted. MUSCULOSKELETAL: Swelling to the right hand wrist bruising to the right hand wrist decreased range of motion due to pain NEUROLOGICAL: Alert and oriented x 3. No focal sensory or strength deficits. Speech normal. Follows commands appropriately. PSYCHIATRIC: Normal Affect, judgement and mood. SKIN: Normal appearance with no rashes or lesions. TRAVEL OUTSIDE OF THE [place] IN LAST 30 DAYS: No - HPI Injury to: Hand Onset: Other - 2 mornings ago Where: Home, Outdoors Timing: Still present Quality of pain: Achy, Sharp, Throbbing, Other - Numbness and tingling to the hand Severity: Moderate Pain Level: 4 Context: Blow - Hit a wall, Swelling - Related Data Allergies/Adverse Reactions: No Known Allergies Allergy (Verified 06/29/20 16:49) Past Medical History - General Information source: Patient - Social History Smoking Status: Current Every Day Smoker Cigarette use (# per day): Yes - ppd Frequency of alcohol use: None Drug Abuse: None Lives with: Family Family History: Reviewed & Not Pertinent Patient has suicidal ideation: No Patient has homicidal ideation: No - Past Medical History Cardiac Medical History: Reports: Hx Hypertension Renal/ Medical History: Denies: Hx Peritoneal Dialysis Musculoskeletal Medical History: Reports Hx Musculoskeletal Deformity, Reports Hx Musculoskeletal Trauma Psychiatric Medical History: Reports: Hx Anxiety, Hx Borderline Personality Disorder Traumatic Medical History: Reports: Hx Fractures - Nose and orbital bones Past Surgical History: Reports: Hx Nose Surgery - Nose and orbital bones - Immunizations Immunizations up to date: Yes Hx Diphtheria, Pertussis, Tetanus Vaccination: Yes Physical Exam - Vital signs Vitals: Temp Pulse Resp BP Pulse Ox 98.4 F 77 18 136/71 H 99 06/29/20 15:23 06/29/20 15:23 06/29/20 15:23 06/29/20 15:23 06/29/20 15:23 Course - Re-evaluation Re-evalutation: 06/29/20 18:10 Discussed x-ray with patient and written report of x-ray given to patient. Patient was treated with a splint. Patient has been instructed to elevate and ice the hand and follow-up with orthopedics. Patient has verbalized understanding and agreement with treatment plan patient will be discharged home. - Vital Signs Vital signs: Temp Pulse Resp BP Pulse Ox 98.8 F 69 16 135/76 H 100 06/29/20 18:06 06/29/20 18:06 06/29/20 18:06 06/29/20 18:06 06/29/20 18:06 - Diagnostic Test Radiology reviewed: Image reviewed, Reports reviewed Procedures - Immobilization Right Hand Time completed: 18:09 Pre-Proc Neuro Vasc Exam: Normal Immobilizer type: Ulnar - boxer's Performed by: PCT Post-Proc Neuro Vasc Exam: Normal Alignment checked and good: No Discharge - Discharge Clinical Impression: Boxers fracture Qualifiers: Encounter type: initial encounter Fracture type: closed Qualified Code(s): S62.339A - Displaced fracture of neck of unspecified metacarpal bone, initial encounter for closed fracture Condition: Stable Disposition: HOME, SELF-CARE Additional Instructions: Fractured Fifth Metacarpal (Boxer's) You have a fracture of the fifth metacarpal bone in the hand, often called a Boxer's Fracture. The fracture is usually caused by striking the knuckle against a hard surface -- such as hitting a wall with the fist. This fracture heals well. Some degree of angle in the fracture is perfectly acceptable, resulting in only a slightly rounder knuckle. Your physician has determined whether your fracture could benefit from "setting", and has outlined a treatment plan for you. The usual treatment is splinting for four to six weeks -- a cast is not usually necessary. At first, the injury should be elevated and ice packed. Contact the doctor at once if swelling or pain becomes severe, or if numbness develops. Splint Pending Casting Your injury can't be casted until the swelling has subsided. Therefore, a temporary splint has been placed to protect the injury. Full use of an injured area is not possible in a splint. You should follow the doctor's instructions concerning rest, ice, and elevation of the injury. N ever do anything which causes pain under the splint. Keep the splint on ALL THE TIME until you return for casting. If there is unexpected severe pain, or numbness, discoloration, or swelling beyond the splint, you should return at once. Oral Narcotic Medication You have been given a [employer] dispense pack for pain control. This medication is a narcotic. It's best taken with food, as nausea can result if taken on an empty stomach. Don't operate machinery or drive within six hours of taking this medication. Do not combine this medicine with alcohol, or with any medication which can cause sedation (such as cold tablets or sleeping pills) unless you get permission from the physician. Narcotics tend to cause constipation. If possible, drink plenty of fluids and eat a diet high in fiber and fruits. Ice & Elevation Apply ice packs frequently against the painful area. Many different schedules are recommended, such as "20 minutes on, 20 minutes off" or "one hour ice, two hours rest." If you need to work, you may need to go longer between ice treatments. You should plan to have the area ice packed AT LEAST one-fourth of the time. The ice should be applied over the wrap, tape, or splint, or over a layer of cloth -- not directly against the skin. Some ice bags have a built-in cloth and can be put directly on the skin. Your injured part should be elevated as much as possible over the next 48 hours. Try to keep the injury above the level of the heart. Avoid use of the injured area. Elevation and rest will decrease the swelling. FOLLOW-UP CARE: If you have been referred to a physician for follow-up care, call the physicians office for an appointment as you were instructed or within the next two days. If you experience worsening or a significant change in your symptoms, notify the physician immediately or return to the Emergency Department at any time for re-evaluation. Forms: Elevated Blood Pressure, Special Work Note, Smoking Cessation Education Referrals: [facility] [Primary Care Provider] - Follow up as needed GREER GILMAN JR, [ACTIVE PROVISIONAL STAFF] - Follow up as needed
--- NOTE | 2020-06-29 17:26 | RADIOLOGY REPORT (SQ) ---
EXAM DESCRIPTION: HAND RIGHT 3 VIEWS; WRIST RIGHT 3 VIEWS IMAGES COMPLETED DATE/TIME: 06/29/2020 5:17 pm REASON FOR STUDY: punched a wall 2 days ago; Injury COMPARISON: None. EXAM PARAMETERS: NUMBER OF VIEWS: Three views right hand. Three views right wrist. TECHNIQUE: AP, lateral and oblique radiographic images acquired of the right wrist and hand. LIMITATIONS: None. FINDINGS: MINERALIZATION: Normal. BONES: Boxer's fracture 5th metacarpal. JOINTS: No effusions. SOFT TISSUES: No soft tissue swelling. No foreign body. OTHER: No other significant finding. IMPRESSION: Boxer's fracture 5th metacarpal. TECHNICAL DOCUMENTATION: JOB ID: [id number] 2010 [employer]- All Rights Reserved Reading location - IP/workstation name: [email or web address]
--- NOTE | 2020-06-29 17:26 | RADIOLOGY REPORT (SQ) ---
EXAM DESCRIPTION: HAND RIGHT 3 VIEWS; WRIST RIGHT 3 VIEWS IMAGES COMPLETED DATE/TIME: 06/29/2020 5:17 pm REASON FOR STUDY: punched a wall 2 days ago; Injury COMPARISON: None. EXAM PARAMETERS: NUMBER OF VIEWS: Three views right hand. Three views right wrist. TECHNIQUE: AP, lateral and oblique radiographic images acquired of the right wrist and hand. LIMITATIONS: None. FINDINGS: MINERALIZATION: Normal. BONES: Boxer's fracture 5th metacarpal. JOINTS: No effusions. SOFT TISSUES: No soft tissue swelling. No foreign body. OTHER: No other significant finding. IMPRESSION: Boxer's fracture 5th metacarpal. TECHNICAL DOCUMENTATION: JOB ID: [id number] 2010 [employer]- All Rights Reserved Reading location - IP/workstation name: [email or web address]
[2020-06-29] MEDS ORDERED: HYDROCODONE/ACETAMINOPHEN 5-325 MG (6 TAB/ER DISP) PO PRN (17:50)
[2020-06-29 18:08] VITALS: BP 135/76
== END 2020-06-29 18:20 | disposition home or self-care (01) ==
LOC: ER 15:15
DX: S62.339A Displaced fracture of neck of unspecified metacarpal bone, initial encounter for closed fracture (principal); W22.09XA Striking against other stationary object, initial encounter; Y92.009 Unspecified place in unspecified non-institutional (private) residence as the place of occurrence of the external cause; F17.210 Nicotine dependence, cigarettes, uncomplicated; I10 Essential (primary) hypertension
CPT/HCPCS: 99284